=== PATIENT | female | born 2000 | race Hispanic/Latino ===

== ENCOUNTER 2022-10-09 16:21 | Inpatient (IN) | payer OTHER ==
[~2022-10-09 16:21] MED LIST: Iopamidol-370 76% 500 ML MDV (1 ML CHARGE) ONE
[2022-10-09] MEDS ORDERED: Ondansetron PF 4 MG/2 ML Vial ONE ×3 (16:50→19:10)
[2022-10-09] MEDS ORDERED: Morphine 4 MG/ML VIAL ONE ×2 (16:50→19:10)
[2022-10-09 16:51] LABS: #Eosinphils 0.1 thou/uL (0.0-0.7); #Lymphocytes 3.1 thou/uL (1.20-3.40); #Monocytes 0.6 thou/uL (0.11-0.59); #Neutrophils 10.1 thou/uL (1.40-6.50); %Basophils 0.1 % (0.0-1.0); %Eosinophils 1.1 % (0.0-10.0); %Lymphocytes 21.9 % (21.0-51.0); %Monocytes 4.2 % (0.0-10.0); %Neutrophils 72.8 % (42.0-75.0); Hemoglobin 15.8 g/dL (12.0-16.0); Mean Corpuscular HGB CONC 31.9 g/dL (32.0-36.0); Mean Corpuscular Hemoglobin 27.9 pg (27.0-31.0); Mean Corpuscular Volume 87.6 fl (78.0-98.0); Mean Platelet Volume 8.6 fL (7.4-10.4); Platelet Count 253 10x3/uL (130-400); RBC Distribution Width 12.3 % (11.5-14.5); Red Blood Cell (RBC) Count 5.66 mill/uL (4.20-5.40); White Blood Cell (WBC) Count 13.9 10x3/uL (4.8-10.8)
[2022-10-09 17:04] LABS: PTT 23.6 sec (22.9-36.1)
[2022-10-09 17:09] LABS: BHCG - Serum Negative (NEGATIVE); Pregs Control Background? CLEAR/WHITE (CLR/WHITE); Pregs Control Bar Appear? YES (CONTROL BAR)
[2022-10-09 17:11] LABS: ALT (SGPT) 26 U/L (8-55); AST (SGOT) 24 U/L (5-34); Albumin 4.9 g/dL (3.5-5.0); Alcohol Less than 10 mg/dL (Less than 10); Alkaline Phosphatase 81 U/L (40-110); Anion Gap 17 mmol/L (10-20); BUN (Urea Nitrogen) 14 mg/dL (7.0-18.7); Bilirubin, Total 0.3 mg/dL (0.2-1.2); Calc. Creatinine Clearance 0 mL/min (70-130); Calcium 9.9 mg/dL (7.8-10.44); Carbon Dioxide 18 mmol/L (22-29); Chloride 107 mmol/L (98-107); Estimated GFR 105; Glucose 138 mg/dL (70-105); INR-International Normal Ratio 0.9; Lipase 28 U/L (8-78); Potassium 3.8 mmol/L (3.5-5.1); Protein, Total 8.9 g/dL (6.0-8.3); Prothrombin Time 12.8 sec (12.0-14.7); Sodium 138 mmol/L (136-145)
[2022-10-09] MEDS ORDERED: Lidocaine 1% w/Epinephrine 1:100K 20 ML VIAL ONE (19:05)
[2022-10-09] MEDS ORDERED: fentaNYL 50 mcg/mL 1 mL Vial ONE (19:38)
[2022-10-09] MEDS ORDERED: hydrALAZINE 20 MG/ML VIAL SLOW IVP PRN (20:03)
[2022-10-09] MEDS ORDERED: Ondansetron PF 4 MG/2 ML Vial IVP PRN (20:03)
[2022-10-09] MEDS ORDERED: Dextrose 50% Abboject 50 ML SYRINGE SLOW IVP PRN (20:03)
[2022-10-09] MEDS ORDERED: Morphine 4 MG/ML VIAL SLOW IVP PRN (20:03)
[2022-10-09] MEDS ORDERED: Dextrose 5% in Water 1,000 ML IV PRN (20:03)
[2022-10-09] MEDS ORDERED: traMADol HCl 50 MG TAB PO PRN ×2 (20:05)
[2022-10-09] MEDS ORDERED: Cyclobenzaprine 10 MG TAB PO PRN (20:05)
[2022-10-09] MEDS ORDERED: Sodium Chloride 0.9% 1,000 ML IV SCH (20:15)
[2022-10-09] MEDS ORDERED: CEFAZOLIN 2 GM VIAL ONE (20:38)
[2022-10-09] MEDS ORDERED: Bacitracin 1 PK ONE (20:57)
[2022-10-09 21:31] VITALS: BMI 44.4
[2022-10-09] MEDS ORDERED: Famotidine 20 MG TAB ONE (22:16)
[2022-10-09] MEDS ORDERED: Acetaminophen 500 MG TAB ONE (22:16)
[2022-10-09] MEDS: Acetaminophen 500 MG TAB PO SCH (22:21)
[2022-10-09] MEDS: Famotidine 20 MG TAB PO SCH (22:22)
[2022-10-09] MEDS: Gabapentin 300 MG CAP PO SCH (22:32)
[2022-10-09] MEDS: Senokot S 8.6-50 MG TAB PO SCH (22:33)
[2022-10-10] MEDS ORDERED: Ketorolac Tromethamine 30 MG/ML VIAL ONE ×2 (00:11→07:42)
[2022-10-10] MEDS: Ketorolac Tromethamine 30 MG/ML VIAL IVP SCH ×4 (00:18→17:58)
[2022-10-10] MEDS ORDERED: Morphine 4 MG/ML VIAL ONE (01:21)
[2022-10-10] MEDS: Acetaminophen 500 MG TAB PO SCH ×4 (03:57→20:40)
[2022-10-10] MEDS ORDERED: Famotidine 20 MG TAB ONE (07:42)
[2022-10-10] MEDS ORDERED: Acetaminophen 500 MG TAB ONE (07:42)
[2022-10-10] MEDS ORDERED: CEFAZOLIN 2 GM in Sodium Chloride 0.9% 100 ML IVPB SCH (07:45)
[2022-10-10] MEDS: Polyethylene Glycol 3350 17 GM Packet PO SCH (07:54)
[2022-10-10] MEDS: Gabapentin 300 MG CAP PO SCH ×3 (07:54→20:41)
[2022-10-10] MEDS: Senokot S 8.6-50 MG TAB PO SCH ×2 (07:54→20:37)
[2022-10-10] MEDS: Famotidine 20 MG TAB PO SCH ×2 (07:54→20:41)
[2022-10-10 08:28] LABS: Anion Gap 11 mmol/L (10-20); BUN (Urea Nitrogen) 10 mg/dL (7.0-18.7); Calc. Creatinine Clearance 247 mL/min (70-130); Calcium 9.3 mg/dL (7.8-10.44); Carbon Dioxide 24 mmol/L (22-29); Chloride 106 mmol/L (98-107); Estimated GFR 120; Glucose 111 mg/dL (70-105); Phosphorus 4.6 mg/dL (2.3-4.7); Potassium 4.2 mmol/L (3.5-5.1); Sodium 137 mmol/L (136-145)
[2022-10-10 08:36] LABS: #Eosinphils 0.1 thou/uL (0.0-0.7); #Lymphocytes 3.4 thou/uL (1.20-3.40); #Monocytes 0.8 thou/uL (0.11-0.59); #Neutrophils 3.9 thou/uL (1.40-6.50); %Basophils 0.6 % (0.0-1.0); %Eosinophils 1.7 % (0.0-10.0); %Lymphocytes 41.1 % (21.0-51.0); %Monocytes 9.4 % (0.0-10.0); %Neutrophils 47.3 % (42.0-75.0); Hemoglobin 12.8 g/dL (12.0-16.0); Mean Corpuscular HGB CONC 32.8 g/dL (32.0-36.0); Mean Corpuscular Hemoglobin 28.4 pg (27.0-31.0); Mean Corpuscular Volume 86.6 fl (78.0-98.0); Mean Platelet Volume 8.8 fL (7.4-10.4); Platelet Count 225 10x3/uL (130-400); RBC Distribution Width 12.2 % (11.5-14.5); Red Blood Cell (RBC) Count 4.49 mill/uL (4.20-5.40); White Blood Cell (WBC) Count 8.3 10x3/uL (4.8-10.8)
[2022-10-10] MEDS ORDERED: traMADol HCl 50 MG TAB ONE (09:56)
[2022-10-10] MEDS ORDERED: Bupivacaine PF 0.5% 30 ML VIAL ONE (11:50)
[2022-10-10] MEDS ORDERED: fentaNYL 50 mcg/mL 1 mL Vial ONE (11:50)
[2022-10-10] MEDS ORDERED: Midazolam HCl 2 mg/2 ml Vial ONE ×2 (11:50→12:08)
[2022-10-10] MEDS ORDERED: Dexamethasone 4 mg/ml Vial ONE (11:59)
[2022-10-10] MEDS ORDERED: Fentanyl 250 MCG/5 ML VIAL ONE (12:08)
[2022-10-10] MEDS ORDERED: Dexmedetomidine 200 MCG/2 ML VIAL ONE (12:08)
[2022-10-10] MEDS ORDERED: Famotidine/PF 20 mg/2ml Vial ONE (12:08)
[2022-10-10] MEDS ORDERED: Sevoflurane 250 ML INH ANEST BOTTLE ONE (12:19)
[2022-10-10] MEDS ORDERED: CEFAZOLIN 2 GM VIAL ONE (12:20)
[2022-10-10] MEDS ORDERED: Sodium Chloride 0.9% 100 ML ONE (12:20)
[2022-10-10] MEDS ORDERED: Lidocaine 1% PF 5 ML VIAL ONE (12:33)
[2022-10-10] MEDS ORDERED: Dexamethasone 20 MG/5 ML VIAL ONE (12:33)
[2022-10-10] MEDS ORDERED: ePHEDrine Sulfate 50 MG/10 ML VIAL ONE (12:33)
[2022-10-10] MEDS ORDERED: Bupivacaine HCl 0.5%/Epinephrine 1:200,000/PF 30 ml Vial ONE (12:33)
[2022-10-10] MEDS ORDERED: Phenylephrine 10 MG/ML VIAL ONE (12:33)
[2022-10-10] MEDS ORDERED: Succinylcholine Chloride 100 MG/5 ML SYRINGE FS ONE (12:33)
[2022-10-10] MEDS ORDERED: Rocuronium Bromide 10 MG/ML (10ML VIAL) ONE (12:33)
[2022-10-10] MEDS ORDERED: Ondansetron PF 4 MG/2 ML Vial ONE ×2 (12:33→14:56)
[2022-10-10] MEDS ORDERED: PROPOFOL 200 MG/20 ML VIAL ONE (12:33)
[2022-10-10] MEDS ORDERED: Rocuronium Bromide 50 MG/5 ML VIAL ONE (12:50)
[2022-10-10] MEDS ORDERED: Ondansetron HCl/PF 4 MG/2 ML Vial IVP PRN (13:05)
[2022-10-10] MEDS ORDERED: Meperidine HCl/PF 25 MG/ML VIAL SLOW IVP PRN (13:05)
[2022-10-10] MEDS ORDERED: Promethazine HCl 25 MG/ML VIAL IM PRN (13:05)
[2022-10-10] MEDS ORDERED: HYDROmorphone 2 MG/ML VIAL SLOW IVP PRN (13:05)
[2022-10-10] MEDS ORDERED: SUGAMMADEX SODIUM 200 MG/2 ML VIAL ONE (13:43)
[2022-10-10] MEDS: CEFAZOLIN 2 GM in Sodium Chloride 0.9% 100 ML IVPB SCH (20:40)
[2022-10-11] MEDS: Ketorolac Tromethamine 30 MG/ML VIAL IVP SCH ×3 (00:06→11:18)
[2022-10-11] MEDS: CEFAZOLIN 2 GM in Sodium Chloride 0.9% 100 ML IVPB SCH (03:31)
[2022-10-11] MEDS: Acetaminophen 500 MG TAB PO SCH ×3 (03:32→13:59)
[2022-10-11 05:47] LABS: #Lymphocytes 1.7 thou/uL (1.20-3.40); #Monocytes 0.6 thou/uL (0.11-0.59); #Neutrophils 7.3 thou/uL (1.40-6.50); %Eosinophils 0.1 % (0.0-10.0); %Lymphocytes 18.1 % (21.0-51.0); %Monocytes 6.1 % (0.0-10.0); %Neutrophils 75.7 % (42.0-75.0); Hemoglobin 11.5 g/dL (12.0-16.0); Mean Corpuscular HGB CONC 32.5 g/dL (32.0-36.0); Mean Corpuscular Hemoglobin 28.3 pg (27.0-31.0); Mean Corpuscular Volume 87.1 fl (78.0-98.0); Mean Platelet Volume 8.3 fL (7.4-10.4); Platelet Count 252 10x3/uL (130-400); RBC Distribution Width 12.1 % (11.5-14.5); Red Blood Cell (RBC) Count 4.07 mill/uL (4.20-5.40); White Blood Cell (WBC) Count 9.6 10x3/uL (4.8-10.8)
[2022-10-11 06:19] LABS: Anion Gap 14 mmol/L (10-20); BUN (Urea Nitrogen) 9 mg/dL (7.0-18.7); Calc. Creatinine Clearance 247 mL/min (70-130); Calcium 9.1 mg/dL (7.8-10.44); Carbon Dioxide 19 mmol/L (22-29); Chloride 106 mmol/L (98-107); Estimated GFR 120; Glucose 187 mg/dL (70-105); Magnesium 1.9 mg/dL (1.6-2.6); Phosphorus 3.7 mg/dL (2.3-4.7); Potassium 4.2 mmol/L (3.5-5.1); Sodium 135 mmol/L (136-145)
[2022-10-11] MEDS: Gabapentin 300 MG CAP PO SCH ×2 (08:11→13:59)
[2022-10-11] MEDS: Polyethylene Glycol 3350 17 GM Packet PO SCH (08:12)
[2022-10-11] MEDS: Famotidine 20 MG TAB PO SCH (08:12)
[2022-10-11] MEDS: Senokot S 8.6-50 MG TAB PO SCH (08:12)
[2022-10-11 15:47] VITALS: BP 136/85; TEMP 97.2
== END 2022-10-11 16:25 | disposition home or self-care (01) | DRG 494 ==
LOC: ERS 16:21 → UNDOADMIN 19:31 → ERHOLD 19:31 → SDC 10-10 12:39 → SURG B 10-10 15:26
PROVIDERS: ADMIT Student in an Organized Health Care Education/Training Program; ATTEND Student in an Organized Health Care Education/Training Program
PROC: 0PSF04Z Reposition Right Humeral Shaft with Internal Fixation Device, Open Approach (ICD-10-PCS; principal; 2022-10-10)
PROC: 0HQ1XZZ Repair Face Skin, External Approach (ICD-10-PCS; 2022-10-10)
DX: S42.401A Unspecified fracture of lower end of right humerus, initial encounter for closed fracture (principal); S01.81XA Laceration without foreign body of other part of head, initial encounter; S80.812A Abrasion, left lower leg, initial encounter; G56.31 Lesion of radial nerve, right upper limb; V89.2XXA Person injured in unspecified motor-vehicle accident, traffic, initial encounter; Y92.9 Unspecified place or not applicable
CPT/HCPCS: 12013; 29105; 36415; 70450; 70486; 71260; 72125; 74177; 80048; 80053; 80307; 83690; 83735; 84100; 84703; 85025; 85610; 85730; 96374; 96375; 96376; C1713; G0390; J1100; J1885; J2250; J2270; J2370; J2405; J2704; J3010; J3490; J7050; Q9967; S0020; S0028